=== PATIENT | male | born 1945 | race Caucasian/White ===

== ENCOUNTER 2022-06-01 09:27 | Outpatient (CLI) | payer MEDICARE, OTHER, SELFPAY ==
--- NOTE | 2022-06-01 09:34 | USCV_ITS ---
Griffin Naylor Age: 76 Gender: M : 1945 Exam Date: 06/01/2022 10:42 Ordering Phys: Ulisses Adams MD Technologist: Elie Wilson [place] [facility] [place]: decreased pedal pulses RIGHT LEFT Brachial 163.00 mmHg Brachial 156.00 mmHg Pressure (mmHg) Waveform Pressure (mmHg) Waveform 157.00 SPEEDER HAND 158.00 156.00 DPA 159.00 0.96 Ankle/Brachial Index 0.96 85.00 Pre-Exercise Toe Pressure 0.00 0.52 Pre-Exercise Toe/Brachial Index 0.00 FINDINGS Resting LUCAS of 0.96 bilaterally Resting TBI of 0.52 on the right side. The toe pressure could not be obtained on the left side. CONCLUSIONS 1. Features of mild peripheral artery disease on the right side. 2. Normal resting LUCAS on the left side with a no Doppler flow signals in the toes, suggesting markedly impaired blood flow. Clinical correlation is recommended. Dr Hanny Dacosta MD [facility] (Electronically Signed) Final Date: 19 June 2022 07:54 S
== END 2022-06-01 09:28 | disposition home or self-care (01) ==
PROVIDERS: PCP Family Medicine; Visit Provider Family Medicine
DX: R09.89 Other specified symptoms and signs involving the circulatory and respiratory systems (principal)
CPT/HCPCS: 93922

== ENCOUNTER → 2022-08-10 13:22 | Outpatient (BNVA) | payer MEDICARE, SELFPAY | PROVIDERS: PCP Family Medicine; Visit Provider Internal Medicine | DX: R20.9 Unspecified disturbances of skin sensation (principal) | CPT/HCPCS: 99204 ==

== ENCOUNTER 2025-03-31 09:10 | Emergency (ER) | payer MEDICARE, SELFPAY ==
[2025-03-31 09:12] VITALS: BP 135/79; PULSE 102; RESP 16; TEMP 36.6; O2SAT 97; BMI 29.5
--- NOTE | 2025-03-31 09:22 | W.ED.GENADLT ---
HPI - General Adult General: Chief complaint: Wound/Laceration Stated complaint: lac on forehead, fall Time Seen by Provider: 03/31/25 09:13 History of Present Illness: 79-year-old male presents emergency room his laceration on the left lateral supraorbital ridge. Going out for a 2-1/2 mile walk when he got home he said he is very tired he denies having any chest pain just very worn out he did not have any particular shortness of breath. He stumbled and collapsed and hit his head on the edge of this concrete as he went down he has a full-thickness laceration of the left lateral supraorbital ridge and a superficial abrasion over the zygomatic arch on the left. His last tetanus shot was 3 years ago. He is also complaining a little bit discomfort in his left hand but states he can move his hand and his fingers and he declined x-ray of the hand.. Patient denied having any unusual shortness of breath or chest discomfort. Associated symptoms: Deny chest pain, dyspnea or rash Related Data Home Medications ?Medication ?Instructions ?Recorded ?Confirmed atorvastatin 40 mg tablet 40 mg PO DAILY 08/10/22 08/10/22 clopidogrel 75 mg tablet (Plavix) 75 mg PO DAILY 08/10/22 08/10/22 vitamins A,C,F-cylr-oypisl 4,296 1 cap PO BID 08/10/22 08/10/22 mcg-226 mg-90 mg capsule (PreserVision AREDS) Previous Rx's ?Medication ?Instructions ?Recorded amlodipine 5 mg tablet 5 mg PO DAILY #90 tabs 08/10/22 cephalexin 500 mg tablet 500 mg PO TID 7 days #21 tabs 03/31/25 Allergies Allergy/AdvReac Type Severity Reaction Status Date / Time No Known Allergies Allergy Verified 03/31/25 09:23 Review of Systems Const: Denies: fever(s) or chills Card: Denies: chest pain Resp: Denies: dyspnea GI: Denies: abdominal pain : Denies: dysuria, urinary frequency or urinary urgency Musc: Denies: neck pain or back pain Skin/Breast: Denies: rash PFSH ED PFSH: Medical History Cold left foot Family History Father , 81 CAD (coronary artery disease) Hypertension Family/Other CAD (coronary artery disease) Diabetes Cancer Social History Smoking and tobacco/nicotine status: never used tobacco/nicotine Alcohol intake: never Substance/Drug Use: never Marital status: Current occupational status: retired Physical Exam Const: GENERAL APPEARANCE: cooperative ORIENTATION/CONSCIOUSNESS: Yes awake, Yes oriented to person, Yes oriented to place and Yes oriented to time HENMT: COMMON NORMALS: normocephalic and hearing grossly normal bilaterally HEAD & SCALP: normocephalic Resp: COMMON NORMALS: normal respiratory effort, No retractions, No use of accessory muscles and clear to auscultation bilaterally AUSCULTATION: clear to auscultation bilaterally Cardio: COMMON NORMALS: regular rate, regular rhythm and No murmurs present (Cardio) RATE: regular rate RHYTHM: regular rhythm GI: COMMON NORMALS: Soft to palpation and No hepatosplenomegaly present AUSCULTATION: Yes normoactive bowel sounds PALPATION: Yes Soft to palpation, No Tenderness to palpation present (GI), No Guarding due to palpation present (GI) and Yes No hepatosplenomegaly present Extremity: COMMON NORMALS: normal to inspection, capillary refill normal, no clubbing, cyanosis or edema, no calf tenderness and no pedal edema Neuro: SENSORIUM/ORIENTATION: Yes oriented to person, Yes oriented to place and Yes oriented to time Skin: COMMON NORMALS: no rashes or lesions noted GENERAL SKIN EXAM: no rashes or lesions noted Procedures Laceration Laceration 1: Site: face Side (If applicable): left Size (cm): 7 Description: irregular Depth: involves muscle layer Local Anesthetic: lidocaine 1% and with epi Amount of anesthesia used (mL): 10 Pre-repair: wound explored, irrigated extensively and deep structures intact Skin layer closed with: nylon Size (cm): 5-0 Number of sutures: 1 Technique: running Subcutaneous layer closed with: vicryl Size: 4-0 Number of sutures: 1 Technique: running Course Vital Signs: Vital signs: Vital Signs Temperature 97.9 F 03/31/25 09:12 Pulse Rate 67 03/31/25 12:08 Respiratory Rate 16 03/31/25 09:12 Blood Pressure 111/76 03/31/25 12:08 Pulse Oximetry 97 03/31/25 12:08 Oxygen Delivery Me thod Room Air 03/31/25 09:12 MDM - General Adult Medical Decision Making CT head and neck negative. Patient awake and alert neurologically intact. Patient had a ground-level mechanical fall. Wound closed layered approach. Wound care instructions given apply lqld-vnf-cszstpp topical antibiotic ointment until sutures removed. Recommend suture removal in 7 days. Return if has signs of infection Medical Records I reviewed the patient's medical records. Lab Data I reviewed the patient's lab results. Radiology Impressions Face CT 03/31/25 09:23 IMPRESSION: 1. No acute facial fractures 2. Opacification RIGHT maxillary sinus with inspissated secretions Head CT 03/31/25 09:23 IMPRESSION: 1. No evidence of intracranial hemorrhage or mass effect. 2. Opacification RIGHT maxillary sinus 3. No acute intracranial findings. All radiology interpretation(s) finalized by discharge EKG Data EKG 1: Interpretation: EKG 03/31/2025 945 sinus rhythm rate 74 [place] interval 166 [address]Tc [address] No acute ST changes, no STEMI, no T wave inversion. No EKGs for previous comparison Computer generated interpretation: Face CT 03/31/25 09:23 IMPRESSION: 1. No acute facial fractures 2. Opacification RIGHT maxillary sinus with inspissated secretions Head CT 03/31/25 09:23 IMPRESSION: 1. No evidence of intracranial hemorrhage or mass effect. 2. Opacification RIGHT maxillary sinus 3. No acute intracranial findings. Discharge Plan Discharge Patient Disposition: Home Clinical Impression: Complex laceration of face Condition: Stable Prescriptions: New cephalexin 500 mg tablet 500 mg PO TID 7 Days Qty: 21 0RF No Action atorvastatin 40 mg tablet 40 mg PO DAILY clopidogrel [Plavix] 75 mg tablet 75 mg PO DAILY PreserVision AREDS [id number],320-226-200 mrzj-ku-dyav capsule 1 cap PO BID amlodipine 5 mg tablet 5 mg PO DAILY Qty: 90 3RF Discharge Orders: Discharge ED (Routine); Ordered 03/31/25 Ordered By: Jarred Mar Referrals: Ulisses Adams MD [Primary Care Provider, Family Practice] Discharge Diet: Usual diet Discharge Activity: Resume usual activity Patient Instructions: Opioid Safety, Pain Management, Patient Portal & Ion Instructions Activity Restrictions/Additional Instructions: Thank you for choosing [facility] for your healthcare needs today. It is very important that you follow up as instructed or that you return to the Emergency Department should you have concerns or if your condition changes or worsens in any way. Emergency department visits are focused on emergent conditions, in some cases you may require further evaluation on an outpatient basis. You are seen emergency room after mechanical fall. He had a laceration above your left eye. CT of your head and your facial bones did not show any acute fractures. Laceration was closed with layered sutures. The superficial layer sutures should be removed in about 7 days. Apply axzn-jnf-miozriu topical antibiotic ointment to the wound until the sutures are removed. You will likely have significant amount of bruising and swelling around the left eye you can apply ice 15 to 20 minutes at a time every 2-3 hours throughout the day and this evening. You may experience a little bit of drainage from the wound over the next few days because of its depth. You were given antibiotics to take prophylactically 1 tablet twice a day. (Please note that included in your discharge packet is information concerning opioid safety and pain management. This information is given to all patients were discharged from the ER regardless of their discharge diagnosis or the medicines they usually take or are prescribed.) Print Language: Faroese Coding Level of Care Code ED [employer] Trader for Kera Weinberg
--- NOTE | 2025-03-31 09:23 | CT_ITS ---
WS: [id number] CT FACIAL BONES TECHNIQUE: Noncontrast facial bones with coronal and sagittal reformatted images. CLINICAL INFORMATION: Trauma COMPARISON: None. DLP: 646.[address] scans at [facility] use at least one of these dose optimization techniques: automated exposure control; mA and/or kV adjustment per patient size (includes targeted exams where dose is matched to clinical indication); or iterative reconstruction. FINDINGS: Soft tissue laceration overlying the LEFT orbit. Inspissated secretions and opacification RIGHT maxillary sinus. LEFT orbit is normal in appearance. Normal RIGHT orbit. No evidence of mandibular dislocation or fracture. Zygoma are normal in appearance. Normal pterygoid plates. Mastoid air cells are well aerated. Disc osteophyte complex at C4-5 with mild central canal stenosis. CT/CT facial bones wo con* [id number] IMPRESSION: 1. No acute facial fractures 2. Opacification RIGHT maxillary sinus with inspissated secretions
--- NOTE | 2025-03-31 09:23 | CT_ITS ---
WS: [id number] CT HEAD TECHNIQUE: Noncontrast CT of the head obtained from the skullbase to the vertex. CLINICAL INFORMATION: Trauma COMPARISON: 2012 DLP: 1156.[address] scans at [facility] use at least one of these dose optimization techniques: automated exposure control; mA and/or kV adjustment per patient size (includes targeted exams where dose is matched to clinical indication); or iterative reconstruction. FINDINGS: No evidence of intracranial hemorrhage or mass effect. Ventricular system and basal cisterns are patent. Mild small vessel changes with mild parenchymal volume loss. No extra-axial fluid collections. No evidence of mass or mass effect. Vascular calcification. Opacification RIGHT maxillary sinus with inspissated secretions. Soft tissue laceration overlying the LEFT superior orbit CT/CT head wo con* [id number] IMPRESSION: 1. No evidence of intracranial hemorrhage or mass effect. 2. Opacification RIGHT maxillary sinus 3. No acute intracranial findings.
--- NOTE | 2025-03-31 09:45 | ECG_ITS ---
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 Measurements Intervals [place] Rate: 74 P: 60 GA: 166 QRS: 26 QRSD: 85 T: 47 QT: 379 QTc: 423 Interpretive Statements SINUS RHYTHM WITH SINUS ARRHYTHMIA No previous ECG available for comparison Electronically Signed On 04-01-2025 08:52:33 NUT ROASTER by Hanny Dacosta M.D. [email or web address]
[2025-03-31 10:00] VITALS: BP 125/85; PULSE 67; O2SAT 94
[2025-03-31] MEDS: lidocaine-epi 1% 20 mL INJ INJECTION (10:01)
[2025-03-31 12:08] VITALS: BP 111/76; PULSE 67; O2SAT 97
== END 2025-03-31 12:08 | disposition home or self-care (01) ==
PROVIDERS: Emergency Provider Family Medicine; PCP Family Medicine
DX: S01.81XA Laceration without foreign body of other part of head, initial encounter (principal); Z79.02 Long term (current) use of antithrombotics/antiplatelets; W01.198A Fall on same level from slipping, tripping and stumbling with subsequent striking against other object, initial encounter
CPT/HCPCS: 12053; 70450; 70486; 93005; 99284; J9999